=== PATIENT | female | born 1950 | race Caucasian/White ===

== ENCOUNTER → 2016-09-30 | Day surgery (SDC) | payer OTHER ==
[~2016-09-30] VITALS: Ht 157.5 cm; Wt 94.4 kg
[~2016-09-30] MED LIST: 0.9% Sodium Chloride 1,000 ML IV SCH; ALBU8.5H2 INHALATION; ATOR20TA PO; FLUT12AE8 IH; GLPZ5T PO; LEVO100T6 PO; LOSA50TA37 PO; METF500T4 PO; OMEP20CA11 PO; Sodium Chloride LOK Flush 10 mL Syringe IV PRN; fentaNYL-PF 50 mCg/mL 2 mL Inj IVPUSH PRN
[2016-09-30 10:28] VITALS: BP 132/75; PULSE 67; O2SAT 97
--- NOTE | 2016-09-30 11:21 | PCM.ENDEGD ---
EGD Date of Service: Sep 30, 2016 Physician Rylan Rodriguez MD Pre Procedure Diagnosis: Abdominal pain Post Procedure Dx & Findings: Esophagitis with some scarring. Duodenitis Procedure Esophagogastroduodenoscopy PROCEDURE IN DETAIL: After proper sedation, Olympus video endoscope was inserted into patient's mouth and esophagus was successfully intubated. Scope introduced esophagus. Esophagus showed normal shiny whitish mucosa consistent with squamous cell component. Z line was at 35 cm from the incisors. At the Z line, there is some scarring but widely open lumen with inflammation and healing ulcer. Biopsies are obtained as feeling also inflammation and scarring. These were placed in 1 bottle. Scope further advanced to the stomach. Stomach showed normal shiny mucosa with normal appearing rugae folds without any ulcer mass erosion. Cardia fundus body antrum pylorus were all visualized. Retroflexion was done. Stomach was easily inflated and deflatable using air. Scope further advanced to the distal duodenum. Duodenum revealed normal villous structures with normal appearing folds without any mass ulcer erosion. However there were some patchy areas of irritation and biopsies were obtained. Impression Esophagitis with some scarring. Patchy duodenitis Recommendation Patient was asked to resume Prilosec for which she was given prescription for. Presedation Assessment Risks and Benefits Informed consent was obtained from the patient after all risks and benefits including but not limited to drug reaction, infection, pain, bleeding, perforation, as well as alternatives were discussed. Patient monitoring Continuous pulse oximetry, cardiac monitoring, blood pressure monitoring, IV access, and oxygen at 2L per nasal cannula. Periprocedural Fentanyl: Fentanyl 125mcg Incrementally Midazolam: Midazolam 8mg Incrementally Complications There were no periprocedural complications identified. Post Procedure Plan Post Procedure Recommendations 1. Restrict activities today. 2. Resume normal activities in the morning. 3. Resume medications. 4. GERD behavioral modification: - Avoid fatty, acidic, spicy, large meals - Do not lie down after meals - Do not eat or drink anything for at least 2 1/2 hours before going to bed at night - Discontinue tobacco and alcohol - Decrease or avoid caffeine - Avoid chocolate and mints - Decrease weight - Avoid aspirin and non steroidal anti-inflammatory agents (NSAID) such as Aleve, Advil, Mobic, Naproxen, Ibuprofen, etc 5. Add proton pump inhibitor. Take 30 minutes before 1st meal of the day. 6. Patient informed of normal post procedure side effects as bloating, drowsiness, blood streaking in the stool 7. If gastric biopsy reveal H.pylori, continue with appropriate treatment 8. If small bowel biopsy reveals celiac, continue with appropriate treatment 9. Please don't hesitate to call me with any questions Rylan Rodriguez MD Sep 30, 2016 11:21
--- NOTE | 2016-09-30 11:22 | PCM.ENDCOL ---
Colonoscopy Date of Service: Sep 30, 2016 Physician Rylan Rodriguez MD Pre Procedure Diagnosis: Screening Post Procedure Dx & Findings: Polyps hemorrhoids Procedure Colonoscopy PROCEDURE IN DETAIL: Prep adequate Withdrawal time 9 minutes After unremarkable rectal examination the Olympus video colonoscope was inserted patient's anal canal and was advanced to cecum. Landmarks were identified including the ileocecal valve and appendiceal orifice. Scope was withdrawn systematically. Visualized colonic mucosa showed healthy shiny mucosa with normal healthy-appearing vasculature. In the ascending colon there was a 3 mm polyp which was removed completely using cold snare. In the transverse colon there were 2 polyps. 3 mm and 1 mm. These were both resected completely using cold snare. In the rectum retroflexion was done which showed hemorrhoids. Anal canal was inspected carefully on the way out and hemorrhoids noted. Impression Polyp 3 status post complete removal Hemorrhoids Recommendation Repeat colonoscopy 3 years Presedation Assessment Risks and Benefits Informed consent was obtained from the patient after all risks and benefits including but not limited to drug reaction, infection, pain, bleeding, perforation, as well as alternatives were discussed. Patient monitoring Continuous pulse oximetry, cardiac monitoring, blood pressure monitoring, IV access, and oxygen at 2L per nasal cannula. Complications There were no periprocedural complications identified. Post Procedure Plan Post Procedure Recommendations 1. Restrict activities today. 2. Resume normal activities in the morning. 3. Resume medications. 4. Patient informed of normal post procedure side effects as bloating, drowsiness, blood streaking in the stool. 5. average risk CRCS. If colon polyps come back as: -Hyperplastic- can repeat colonoscopy in 10 years -Tubular adenoma- repeat colonoscopy in 5 years -Tubulovillous/villous adenoma- repeat colonoscopy in 3 years -If any dysplasia- return to clinic as soon as possible 6. Please don't hesitate to call me with any questions. Rylan Rodriguez MD Sep 30, 2016 11:22
[2016-09-30 11:24] VITALS: BP 122/69; PULSE 72; RESP 16; O2SAT 93
[2016-09-30 11:33] VITALS: BP 115/66; PULSE 83; RESP 16
[2016-09-30 11:40] VITALS: BP 129/71; PULSE 72; RESP 16; O2SAT 95
--- NOTE | 2016-10-04 10:23 | PATH ---
SURGICAL PATHOLOGY Attending Physician:Rylan Rodriguez M.D. CASE STATUS: Signed Out PATIENT NAME: JORDYN MENDEZ PID: [id number] : 1950 DATE COLLECTED:09/30/2016 21:17 SPECIMEN: 1: Esophagus, Biopsy 2: Duodenum, Biopsy 3: Colon, Polyp 4: Colon, Polyp CLINICAL HISTORY: 1). DISTAL ESOPHAGUS 2). DUODENUM BIOPSY 3). TRANSVERSE POLYPS 4) ASCENDING POLYP FINAL DIAGNOSIS: 1. Distal Esophagus, Biopsy: - Squamocolumnar junctional mucosa with focal active esophagitis and features of reflux esophagitis. See microscopic description. - Negative for intestinal metaplasia. - No evidence of fungal microorganisms. - Negative for dysplasia and malignancy. - Negative for Helicobacter pylori microorganism by immunohistochemistry. - Additional deeper levels examined. 2. Duodenum, Biopsy: - Duodenal mucosa with focal partial villous blunting and focal neutrophilic inflammation consistent with mild active duodenitis. - Negative for granulomas, features of sprue, dysplasia and malignancy. 3. Transverse Polyps: - Tubular adenoma in 3 of 3 fragments. 4. Ascending Polyp: - Tubular adenoma. ICD10: D12.6 GROSS DESCRIPTION: The specimen is received in four formalin filled containers labeled with the patient's name. 1). The specimen is labeled "distal esophagus" and consists of 2 portions of tissue which aggregate to 0.2 x 0.2 x 0.2 CM. The specimen is entirely submitted in cassette 1A. 2). The specimen is labeled "duodenum" and consists of 2 portions of tissue which aggregate to 0.3 x 0.2 x 0.2 CM. The specimen is entirely submitted in cassette 2A. 3). The specimen is labeled "transverse polyps X2" and consists of 3 portions of tissue which aggregate to 0.3 x 0.2 x 0.2 CM. The specimen is entirely submitted in cassette 3A. 4). The specimen is labeled "ascending polyp" and consists of a 0.3 x 0.3 x 0.3 CM portion of tissue which is entirely submitted in cassette 4A. 09/30/2016DC MICRO DESCRIPTION: Part 1) "Distal esophagus": Histologic sections demonstrate squamocolumnar junctional mucosa with focal neutrophilic inflammation involving squamous mucosa with features of reflux esophagitis. There is mild cytologic atypia consistent with reactive atypia, likely due to nearby erosion/ ulcer. Per endoscopy there was a healing ulcer identified at this site. An immunohistochemical stain was performed to evaluate for Helicobacter pylori microorganisms. The control stain shows appropriate reactivity. As part of routine automotive quality manager parts 1 and 2 were also reviewed by Dr. Weathers who agrees with the above interpretation. * This test was developed and its performance characteristics determined by [facility]. It has not been cleared or approved by the U.S. Food and Drug Administration. The FDA has determined that such clearance or approval is not necessary. This test is used for clinical purposes. It should not be regarded as investigational or for research. ICD-9 CODES: CPT CODES: 1: 17672, 69447 2: 05172 3: 51308 4: 68074 Electronically Signed Out Frank Aguilera MD [facility] [address], [place] [address] Technical component performed at [facility], [address], [place], [address]
== END | disposition home or self-care (01) ==
LOC: END 00:25
PROVIDERS: ATTEND Internal Medicine
DX: D12.3 Benign neoplasm of transverse colon (principal); D12.2 Benign neoplasm of ascending colon; K64.9 Unspecified hemorrhoids; K29.80 Duodenitis without bleeding; K20.9 Esophagitis, unspecified; R10.12 Left upper quadrant pain; I10 Essential (primary) hypertension; E78.5 Hyperlipidemia, unspecified; E11.9 Type 2 diabetes mellitus without complications; E78.00 Pure hypercholesterolemia, unspecified; E04.8 Other specified nontoxic goiter; K21.9 Gastro-esophageal reflux disease without esophagitis; Z79.84 Long term (current) use of oral hypoglycemic drugs
CPT/HCPCS: 43239; 45385; 99153; G0500; J2250; J3010; J7030